=== PATIENT | male | born 1980 | race American Indian/Alaskan Native ===

== ENCOUNTER 2017-02-26 18:01 | Emergency (ER) | payer SELFPAY ==
[2017-02-26] MEDS ORDERED: FLEXERIL PO ONE (18:06)
[2017-02-26] MEDS ORDERED: TORADOL IM ONE (18:06)
--- NOTE | 2017-02-26 18:10 | Emergency Department Report ---
Entered by CARSON ABRAMS, acting as scribe for KEN FORD NP. Chief Complaint: Back Pain/Injury Stated Complaint: BACK INJURY Time Seen by Provider: 02/26/17 18:04 - HPI History of Present Illness: 36 y/o male presents to the ED c/o lower back injury x 3 weeks. Associated symptoms include lower back pain. Denies numbness or tingling in legs. 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 States he could not get out of bed today. NKDA. - ROS Review of Systems: +lower back pain -numbness/tingling in legs - Exam Vital Signs: Vital Signs 02/26/17 18:05 Temperature 98.5 F Pulse Rate 91 H Respiratory 18 Rate Blood Pressure 140/98 O2 Sat by Pulse 98 Oximetry Physical Exam: pt looks well, non toxic. steady gait + midline lumber tenderness MSE screening note: Focused history and physical exam performed. Due to findings the following was ordered: ED Disposition for MSE Condition: Stable This documentation as recorded by the scribe,CARSON ABRAMS,accurately reflects the service I personally performed and the decisions made by ,KEN FORD, [employer].
--- NOTE | 2017-02-26 19:19 | Emergency Department Report ---
ED Back Pain/Injury HPI - General Chief Complaint: Back Pain/Injury Stated Complaint: BACK INJURY Time Seen by Provider: 02/26/17 18:04 Source: patient Limitations: No Limitations - History of Present Illness Initial Comments: This is a 36-year-old male that presents with low back pain x3 weeks. 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 Patient believes he strained his lower back at work. Patient denies any trauma to area. Denies dysuria, polyuria, CP, SOB, trauma, stiff neck, fever, chills, headache, dizziness, numbness, tingling, abnormal gait. Patient has been using [id number] icy hot and Tylenol without relief. Denies any drug allergies. Denies PMH. MD Complaint: back pain -: Gradual, week(s) (3) Similar Symptoms Previously: Yes Place: work Radiation: none Severity: mild Severity scale (0 -10): 10 Quality: aching Consistency: constant Improves With: none Worsens With: none Context: while lifting, turning/twisting Associated Symptoms: denies other symptoms. denies: confusion, weakness, chest pain, numbness, difficulty walking, cough, difficulty urinating, diaphoresis, incontinence, fever/chills, constipation, headaches, abdominal pain, loss of appetite, malaise, nausea/vomiting, rash, seizure, shortness of breath, syncope - Related Data Previous Rx's Medication Instructions Recorded Last Taken Type Cyclobenzaprine [Flexeril] 10 mg PO TID PRN #15 tablet 02/26/17 Unknown Rx Ibuprofen [Motrin 600 MG tab] 600 mg PO Q8H PRN #15 tablet 02/26/17 Unknown Rx Allergies Allergy/AdvReac Type Severity Reaction Status Date / Time No Known Allergies Allergy Unverified 02/26/17 18:09 ED Review of Systems ROS: Stated complaint: BACK INJURY Other details as noted in HPI Constitutional: denies: chills, fever Eyes: denies: eye pain, eye discharge, vision change ENT: denies: ear pain, throat pain Respiratory: denies: cough, shortness of breath, wheezing Cardiovascular: denies: chest pain, palpitations Endocrine: no symptoms reported Gastrointestinal: denies: abdominal pain, nausea, diarrhea Genitourinary: denies: urgency, dysuria Musculoskeletal: denies: back pain, joint swelling, arthralgia Skin: denies: rash, lesions Neurological: denies: headache, weakness, paresthesias Psychiatric: denies: anxiety, depression Hematological/Lymphatic: denies: easy bleeding, easy bruising ED Past Medical Hx - Past Medical History Previous Medical History?: No - Surgical History Past Surgical History?: No - Social History Smoking Status: Never Smoker Substance Use Type: Alcohol - Medications Home Medications: Home Medications Medication Instructions Recorded Confirmed Last Taken Type Cyclobenzaprine [Flexeril] 10 mg PO TID PRN #15 tablet 02/26/17 Unknown Rx Ibuprofen [Motrin 600 MG tab] 600 mg PO Q8H PRN #15 tablet 02/26/17 Unknown Rx ED Physical Exam - General Limitations: No Limitations General appearance: alert, in no apparent distress - Head Head exam: Present: atraumatic, normocephalic, normal inspection - Eye Eye exam: Present: normal appearance, PERRL, EOMI. Absent: scleral icterus, conjunctival injection, nystagmus, periorbital swelling, periorbital tenderness Pupils: Present: normal accommodation - ENT ENT exam: Present: normal exam, normal orophraynx, mucous membranes moist, TM's normal bilaterally, normal external ear exam - Neck Neck exam: Present: normal inspection, full ROM. Absent: tenderness, meningismus, lymphadenopathy, thyromegaly - Respiratory Respiratory exam: Present: normal lung sounds bilaterally. Absent: respiratory distress, wheezes, rhonchi, stridor, chest wall tenderness, accessory muscle use , decreased breath sounds, prolonged expiratory - Cardiovascular Cardiovascular Exam: Present: regular rate, normal rhythm, normal heart sounds. Absent: bradycardia, tachycardia, irregular rhythm, systolic murmur, diastolic murmur, rubs, gallop - GI/Abdominal GI/Abdominal exam: Present: soft, normal bowel sounds. Absent: distended, tenderness, guarding, rebound, rigid, diminished bowel sounds - Rectal Rectal exam: Present: deferred - Extremities Exam Extremities exam: Present: normal inspection, full ROM, normal capillary refill. Absent: tenderness, pedal edema, joint swelling, calf tenderness - Back Exam Back exam: Present: normal inspection, full ROM, paraspinal tenderness (lumbar spinal region), vertebral tenderness (lumbar spinal tenderness). Absent: tenderness, CVA tenderness (R), CVA tenderness (L), muscle spasm, rash noted - Expanded Back Exam Expanded Back exam: Present: normal rectal tone (as per patient). Absent: saddle anesthesia Back exam: Negative Straight Leg Raising: Left, Right - Neurological Exam Neurological exam: Present: alert, oriented X3, CN II-XII intact, normal gait, reflexes normal - Psychiatric Psychiatric exam: Present: normal affect, normal mood - Skin Skin exam: Present: warm, dry, intact, normal color. Absent: rash ED Course Vital Signs 02/26/17 02/26/17 18:05 19:31 Temperature 98.5 F 98.7 F Pulse Rate 91 H 87 Respiratory 18 18 Rate Blood Pressure 140/98 O2 Sat by Pulse 98 Oximetry - Reevaluation(s) Reevaluation #1: 02/26/17 19:21 Patient is sitting in the room with girlfriend. No signs of distress noted. ED Medical Decision Making - Medical Decision Making Ed course: This is a 36-year-old male that presents with low back strain 1- patient was examined by myself. X-ray of lumbar spine has been obtained with negative findings. Dictated by the radiologist. Patient was notified of the xray findings with no further questions noted by the patient. 2- Prior to my interview, patient received Tordol 30 mg IM and Flexerl 10 mg in the triage. Patient was notified not operate heavy machinery after discharge due to sedation/drowsiness of Flexeril 3- Patient was d/c with Flagyl and ibuprofen and patient was instructed not to operate heavy machinery while taking Flexeril due to sedation. 4- patient was instructed to follow-up with your primary care doctor in 3-5 days or if symptoms worsen such as bladder or bowel stability, chest pain, short of breath, numbness or tingling sensation in extremities, headache, dizziness, visual changes, nausea vomiting, or abdominal pain, return back to emergency room as was possible. 5- Take ibuprofen and Flexeril as prescribed. Do not operate heavy machinery while taking Flexeril due to sedation 6- A UA has been obtained to rule out UTI. No indication of urinary tract infection. Critical care attestation.: If time is entered above; I have spent that time in minutes in the direct care of this critically ill patient, excluding procedure time. ED Disposition Clinical Impression: Low back strain Qualifiers: Encounter type: initial encounter Qualified Code(s): S39.012A - Strain of muscle, fascia and tendon of lower back, initial encounter Disposition: TO HOME OR SELFCARE Is pt being admited?: No Does the pt Need Aspirin: No Condition: Stable Instructions: Ibuprofen (By mouth), Low Back Strain (ED) Additional Instructions: follow-up with your primary care doctor in 3-5 days or if symptoms worsen such as bladder or bowel stability, chest pain, short of breath, numbness or tingling sensation in extremities, headache, dizziness, visual changes, nausea vomiting, or abdominal pain, return back to emergency room as was possible. Take ibuprofen and Flexeril as prescribed. Do not operate heavy machinery while taking Flexeril due to sedation Prescriptions: Cyclobenzaprine [Flexeril] 10 mg PO TID PRN #15 tablet PRN Reason: Muscle Spasm Ibuprofen [Motrin 600 MG tab] 600 mg PO Q8H PRN #15 tablet PRN Reason: Pain Referrals: CARA ARROYO JR, MD [Staff Physician] - 3-5 Days [facility] [Outside] - 3-5 Days [facility] [Outside] - 3-5 Days PRIMARY CARE, [Primary Care Provider] - 3-5 Days Forms: Work/School Release Form(ED)
--- NOTE | 2017-02-26 19:29 | XRay Report ---
FINAL REPORT EXAM: XR SPINE LUMBOSACRAL 2-3V HISTORY: lbp x 3 weeks, due to lifting TECHNIQUE: AP, lateral and coned-down views of lumbar spine. PRIORS: None. FINDINGS: Disc spaces maintained. No loss of height or gross malalignment of lumbar vertebral bodies. No obvious osseous destruction. IMPRESSION: 1. No acute osseous abnormality.
[2017-02-26 19:50] LABS: Bilirubin,Urine NEG (Negative); Blood,Urine NEG (Negative); Ketones,Urine NEG (Negative); Leukocyte Esterase,Urine NEG (Negative); Nitrite,Urine NEG (Negative); Protein,Urine <15 mg/dL mg/dL (Negative); Urobilinogen,Urine < 2.0 mg/dL (<2.0)
[2017-02-26 20:02] VITALS: BP 132/80
== END 2017-02-26 20:33 | disposition home or self-care (01) ==
LOC: ED 18:01
DX: S39.012A Strain of muscle, fascia and tendon of lower back, initial encounter (principal); X50.0XXA Overexertion from strenuous movement or load, initial encounter; Y93.89 Activity, other specified; Y92.89 Other specified places as the place of occurrence of the external cause; Y99.0 Civilian activity done for income or pay
CPT/HCPCS: 72100; 81001; 96372; 99284; J1885

== ENCOUNTER 2017-03-04 18:31 | Emergency (ER) | payer SELFPAY | END 2017-03-04 18:35 | disposition left against medical advice (07) | LOC: ED 18:31 | DX: S39.92XA Unspecified injury of lower back, initial encounter (principal); Z53.21 Procedure and treatment not carried out due to patient leaving prior to being seen by health care provider ==